=== PATIENT | female | born 1995 | race Caucasian/White ===

== ENCOUNTER 2016-07-09 11:13 | Outpatient (CLI) | payer BC ==
[~2016-07-09] VITALS: Ht 167.6 cm; Wt 80.0 kg
[~2016-07-09 11:13] MED LIST: metroNIDAZOLE (FLAGYL) 500 MG TAB PO SCH
[2016-07-09 11:43] VITALS: BP 132/83
[2016-07-09] MEDS ORDERED: PRENTAB9 PO (12:17)
[2016-07-09] MEDS ORDERED: ACET50TA PO (12:18)
--- NOTE | 2016-07-09 13:28 | REP ---
Clinical: well-being. Findings: Advanced diamniotic dichorionic twin gestation noted. Placenta is noted anteriorly and posteriorly, grade zero without evidence for placenta previa or abruption. Cervix measures 3.9 cm length and appears closed. Concordant growth is appreciated. Gestational age by LMP 35 weeks 2 days with ALTAF 08/11/2016. TWIN A: Cephalic presentation. motion identified. Amniotic fluid volume is normal and the deepest pocket measures 3.3 cm. heart rate equals 147 beats per minute. Estimated weight 1921 grams (35th percentile). Biophysical profile score equals 8/8. Umbilical cord SD ratio equals 1.90. TWIN B: Cephalic presentation. motion identified. Amniotic fluid volume is normal and the deepest pocket measures 3.6 cm. heart rate equals 153 beats per minute. Estimated weight 2149 (55th percentile). Biophysical profile score equals 8/8. Umbilical cord SD ratio equals 2.19. Impression: Diamniotic dichorionic twin gestation. Biophysical profile score equals 8/8 for both twins. Concordant growth is appreciated with estimated weights as noted above. Signed by Georges Barron MD 07/09/2016 01:20 P
[2016-07-09] MEDS ORDERED: TERCONAZOLE-7 VAGINAL CREAM PV SCH ×2 (13:30→21:00)
== END 2016-07-09 14:15 | disposition home or self-care (01) ==
LOC: M LDO 11:13
PROVIDERS: ATTEND Advanced Practice Midwife
DX: O47.03 False labor before 37 completed weeks of gestation, third trimester (principal); Z3A.33 33 weeks gestation of pregnancy; O30.043 Twin pregnancy, dichorionic/diamniotic, third trimester

== ENCOUNTER → 2016-07-27 | Outpatient (REF) | payer BC ==
[~2016-07-27] MED LIST changes: +ACET50TA PO; +PRENTAB9 PO; -metroNIDAZOLE (FLAGYL) 500 MG TAB PO SCH
== END ==
LOC: M LAB REF 13:09
PROVIDERS: ATTEND Specialist
DX: O30.043 Twin pregnancy, dichorionic/diamniotic, third trimester (principal)

== ENCOUNTER 2016-08-11 05:22 | Inpatient (IN) | payer BC ==
[2016-08-11] VITALS (8 sets, daily range): BP systolic 109–141; BP diastolic 62–79
[~2016-08-11] VITALS: Ht 170.2 cm; Wt 86.0 kg
[2016-08-11] MEDS ORDERED: LR 1,000 ML IV SCH ×2 (05:55→09:45)
[2016-08-11] MEDS ORDERED: LACTATED RINGER'S 1000 ML IV STA (05:55)
[2016-08-11] MEDS ORDERED: MORPHINE PRES-FREE INJ 10 MG/10 ML VIAL (J2274) As Ordered ONE (07:12)
[2016-08-11] MEDS ORDERED: BICITRA 30ML SOLN UDC PO ONE (07:15)
[2016-08-11 07:18] LABS: MEAN CORPUSCULAR HEMOGLOBIN 22.8 pg (27.0-33.0); MEAN CORPUSCULAR HGB CONC 31.1 g/dl (32.0-36.5); MEAN CORPUSCULAR VOLUME 73.4 fl (80.0-96.0); RED CELL DISTRIBUTION WIDTH 14.3 % (11.5-14.5); WHITE BLOOD COUNT 9.1 K/mm3 (4.0-10.0)
[2016-08-11] MEDS ORDERED: NALOXONE INJ 0.4 MG/1 ML VIAL (J2310) IV PRN ×2 (07:54)
[2016-08-11] MEDS ORDERED: NALBUPHINE HCL 10 MG/ML AMP (J2300) IV PRN ×2 (07:54→09:45)
[2016-08-11] MEDS ORDERED: ONDANSETRON 4MG/2ML VIAL (J2405) IV PRN ×3 (07:54→09:45)
[2016-08-11] MEDS ORDERED: METOCLOPRAMIDE INJ 10MG/2ML VIAL (J2765) IV PRN (07:54)
[2016-08-11] MEDS ORDERED: METOCLOPRAMIDE INJ 10MG/2ML VIAL (J2765) As Ordered ONE (08:10)
[2016-08-11] MEDS ORDERED: PHENYLephrine HCL 500 MCG/5 ML (100MCG/ML) SYRINGE (J2370) As Ordered ONE ×2 (08:10→08:38)
[2016-08-11] MEDS ORDERED: MIDAZOLAM INJ 2 MG/2 ML VIAL (J2250) As Ordered ONE (08:31)
[2016-08-11] MEDS ORDERED: OXYTOCIN INJ 10 UNITS/ML VIAL (J2590) As Ordered ONE (08:34)
[2016-08-11] MEDS ORDERED: KETOROLAC 60 MG/2 ML VIAL (J1885) As Ordered ONE ×2 (08:40→08:41)
[2016-08-11] MEDS ORDERED: ONDANSETRON 4MG/2ML VIAL (J2405) As Ordered ONE (08:40)
[2016-08-11] MEDS: PRENATAL VITAMIN TAB PO SCH (09:00)
[2016-08-11] MEDS: DOCUSATE SODIUM 100 MG CAP PO SCH ×2 (09:00→20:55)
[2016-08-11] MEDS: LR 1,000 ML IV SCH ×2 (09:04→17:04)
[2016-08-11] MEDS ORDERED: RHOGAM 300 MCG (1500 IU) INJ (J2790) IM SCH (09:15)
[2016-08-11] MEDS ORDERED: PROMETHAZINE 25 MG TAB PO PRN (09:15)
[2016-08-11] MEDS ORDERED: MEASLES,MUMPS,RUBELLA VACCINE INJ (MMR-II) (90707) SC SCH (09:15)
[2016-08-11] MEDS ORDERED: OXYTOCIN 30 UNITS IN 0.9% NaCl 500ML IV BAG (J2590) As Ordered ONE (09:26)
[2016-08-11] MEDS ORDERED: fentaNYL 100 MCG/2 ML INJECTION (J3010) IV PRN (09:45)
[2016-08-11] MEDS ORDERED: PERCOCET 5MG/325MG TAB PO PRN (09:45)
[2016-08-11] MEDS ORDERED: diphenhydrAMINE INJ 50MG/ML VIAL (J1200) IV PRN (09:45)
[2016-08-11] MEDS ORDERED: HYDROmorphone HCL 1 MG/ML SYRINGE (J1170) IV PRN (09:45)
[2016-08-11] MEDS ORDERED: MEPERIDINE INJ 25 MG/ML VIAL (J2175) IV PRN (09:45)
[2016-08-11] MEDS ORDERED: OXYTOCIN DRIP 30 UNITS in APPROPRIATE DILUENT 1 EA IV SCH (09:50)
[2016-08-11] MEDS ORDERED: IBUP600T26 PO (10:11)
[2016-08-11] MEDS ORDERED: NORC5TAB PO (10:15)
[2016-08-11] MEDS ORDERED: COLA100C PO (10:17)
[2016-08-11] MEDS: NORCO, ANEXSIA 5/325MG TABLET (HYDROcodone/ACETAMINOPHEN) PO PRN (13:04)
[2016-08-11] MEDS: KETOROLAC 30 MG/ML VIAL (J1885) IV SCH ×2 (15:00→20:57)
[2016-08-11] MEDS ORDERED: diphenhydrAMINE 50 MG CAP PO PRN (20:15)
[2016-08-11] MEDS: SLF 3 ML SYR IV SCH (20:57)
[2016-08-12] MEDS: KETOROLAC 30 MG/ML VIAL (J1885) IV SCH ×2 (03:23→09:45)
[2016-08-12] MEDS: NORCO, ANEXSIA 5/325MG TABLET (HYDROcodone/ACETAMINOPHEN) PO PRN ×4 (03:28→20:37)
[2016-08-12 06:00] VITALS: BP 141/83
[2016-08-12 06:38] LABS: MEAN CORPUSCULAR HEMOGLOBIN 22.6 pg (27.0-33.0); MEAN CORPUSCULAR HGB CONC 31.1 g/dl (32.0-36.5); MEAN CORPUSCULAR VOLUME 72.7 fl (80.0-96.0); RED CELL DISTRIBUTION WIDTH 14.6 % (11.5-14.5); WHITE BLOOD COUNT 10.1 K/mm3 (4.0-10.0)
[2016-08-12] MEDS: SLF 3 ML SYR IV SCH ×4 (06:53→19:21)
[2016-08-12] MEDS: PRENATAL VITAMIN TAB PO SCH (09:44)
[2016-08-12] MEDS: DOCUSATE SODIUM 100 MG CAP PO SCH ×2 (09:44→20:30)
[2016-08-12] MEDS: IBUPROFEN 800 MG TAB PO SCH (17:11)
[2016-08-12 18:00] VITALS: BP 132/70
[2016-08-13] MEDS: IBUPROFEN 800 MG TAB PO SCH ×2 (00:42→10:25)
[2016-08-13] MEDS: NORCO, ANEXSIA 5/325MG TABLET (HYDROcodone/ACETAMINOPHEN) PO PRN ×2 (01:48→10:26)
[2016-08-13 05:45] VITALS: BP 136/74
[2016-08-13] MEDS: PRENATAL VITAMIN TAB PO SCH (10:24)
[2016-08-13] MEDS: DOCUSATE SODIUM 100 MG CAP PO SCH (10:24)
--- NOTE | 2016-08-13 10:36 | DSES ---
DATE OF ADMISSION: 08/11/2016 DATE OF DISCHARGE: DISCHARGE DIAGNOSIS: Repeat section at term, postoperative day #2, stable condition. SURGEON: Dr. Roni Magana. HISTORY: Yuliya is a 20-year-old, 2, para 3-0-0-3 now, who underwent repeat section at term with a - twin gestation due to previous prior and malpresentation. The surgery was uncomplicated. Her postoperative course has been uncomplicated. She has been out of bed for self care, roly care and infant care. Her pain has been well controlled with by mouth Percocet and ibuprofen. She denies any heavy bleeding and generalized complaints. Her vital signs are stable today. Temperature 98.5, pulse 94, respirations 18 and blood pressure is 136/74. LAB WORK: Preoperative CBC with a hemoglobin of 9.8, hematocrit of 31.6 and platelet of 266. Postoperative CBC with hemoglobin of 10, hematocrit of 32.1 and platelets of 235. Breast-feeding has been going well and it appears the twins will be discharged today. She delivered two live females. Twin A weighing 2860 grams, 6 pounds 5 ounces, eight and nine. Twin B 2858 grams, 6 pounds 5 ounces, four and nine. Her breasts are soft and nontender. Abdomen: Fundus firm at umbilicus (U). Her incision is well approximated, Steri-Strips in place. There is no drainage. No redness. No warmth. No edema. Perineum is intact with lochia rubra moderate. Bilateral lower extremity +1 pitting edema. The plan is to discharge the patient home today and follow up at [facility] for a 2-week incision check and a 6-week visit. I did review discharge instructions that include breast care, roly care, rest, activity and lifting restrictions, signs and symptoms of mastitis and uterine infection as well as incisional infection. I reviewed access to care. Prescriptions for her Percocet have been prescribed prior by Dr. Magana to her pharmacy. The patient has had all of her questions answered and desires to be discharged today.
[2016-08-13] MEDS ORDERED: LORT5TAB PO (11:04)
== END 2016-08-13 12:35 | disposition home or self-care (01) | DRG 540 ==
LOC: M LDI 05:22 → M OBS 11:06
PROVIDERS: ADMIT Obstetrics & Gynecology; ATTEND Obstetrics & Gynecology
PROC: 10D00Z1 Extraction of Products of Conception, Low, Open Approach (ICD-10-PCS; principal; 2016-08-11 07:30)
DX: O64.8XX1 Obstructed labor due to other malposition and malpresentation, fetus 1 (principal); O30.043 Twin pregnancy, dichorionic/diamniotic, third trimester; Z37.2 Twins, both liveborn; O64.0XX2 Obstructed labor due to incomplete rotation of fetal head, fetus 2; O34.211 Maternal care for low transverse scar from previous cesarean delivery; Z3A.38 38 weeks gestation of pregnancy; Z79.899 Other long term (current) drug therapy; F41.8 Other specified anxiety disorders; O99.344 Other mental disorders complicating childbirth

== ENCOUNTER → 2023-11-05 | Outpatient (CLI) | payer OTHER ==
[~2023-11-05] MED LIST changes: -ACET50TA PO; +COLA100C5 PO; +IBUP-1022 PO; +LORT5TAB PO; +MAPA500T2 PO; +NORC1TAB7 PO
== END ==
LOC: M WHC 10:10
PROVIDERS: ATTEND Specialist
DX: Z34.82 Encounter for supervision of other normal pregnancy, second trimester (principal)

== ENCOUNTER → 2023-12-27 | Outpatient (CLI) | payer OTHER | LOC: M WHC 15:30 | PROVIDERS: ATTEND Advanced Practice Midwife | DX: Z34.83 Encounter for supervision of other normal pregnancy, third trimester (principal); Z3A.28 28 weeks gestation of pregnancy ==

== ENCOUNTER → 2024-02-18 | Outpatient (REF) | payer OTHER | LOC: M PLALAB 11:04 | PROVIDERS: ATTEND Obstetrics & Gynecology | DX: Z36.85 Encounter for antenatal screening for Streptococcus B (principal); Z3A.35 35 weeks gestation of pregnancy ==

== ENCOUNTER → 2024-02-18 | Outpatient (CLI) | payer OTHER | LOC: M WHC 12:32 | PROVIDERS: ATTEND Obstetrics & Gynecology | DX: O24.419 Gestational diabetes mellitus in pregnancy, unspecified control (principal); Z3A.35 35 weeks gestation of pregnancy ==

== ENCOUNTER 2024-03-11 05:35 | Inpatient (IN) | payer OTHER ==
[2024-03-11] VITALS (8 sets, daily range): BP systolic 101–120; BP diastolic 53–64; TEMP 97.9; O2SAT 95–100
[~2024-03-11] VITALS: Ht 162.6 cm; Wt 85.5 kg
[2024-03-11] MEDS: LACTATED RINGER'S 1000 ML IV STA (05:48)
[2024-03-11 07:15] LABS: HEMOGLOBIN 11.3 g/dl (12.0-15.5); MEAN CORPUSCULAR HEMOGLOBIN 27.7 pg (27.0-33.0); MEAN CORPUSCULAR HGB CONC 33.2 g/dl (32.0-36.5); MEAN CORPUSCULAR VOLUME 83.3 fl (80.0-96.0); PLATELET COUNT, AUTOMATED 189 10^3/uL (150-450); RED BLOOD COUNT 4.08 10^6/uL (4.00-5.40); WHITE BLOOD COUNT 8.4 10^3/uL (4.0-10.0)
[2024-03-11] MEDS: LR 1,000 ML IV SCH ×2 (07:21→15:12)
[2024-03-11] MEDS: ceFAZolin SOD 2 GM in IV 1 EA IV ONE (07:21)
[2024-03-11] MEDS: BICITRA 30ML SOLN UDC PO ONE (07:21)
[2024-03-11 08:35] LABS: CORD GAS ABE A -1.6; CORD GAS HCO3 A 25.6 MMOL/L; CORD GAS HCO3 V 23.1 MMOL/L; CORD GAS O2 SAT A 58.8 %; CORD GAS O2 SAT V 77.9 %; CORD GAS PCO2 A 52.4 mmHg; CORD GAS PCO2 V 36.7 mmHg; CORD GAS PH A 7.306 UNITS; CORD GAS PH V 7.416 UNITS; CORD GAS PO2 A 25.1 mmHg; CORD GAS PO2 V 31.4 mmHg; CORD GAS SBC A 22.2 MMOL/L; CORD GAS SBC V 23.1 MMOL/L; CORD GAS TCO2 A 27.2 MMOL/L; CORD GAS TCO2 V 24.2 MMOL/L
[2024-03-11] MEDS ORDERED: MORPHINE PRES-FREE INJ 10 MG/10 ML VIAL As Ordered ONE (08:50)
[2024-03-11] MEDS ORDERED: OXYTOCIN 30UNITS IN 0.9% NaCl 500ML IV BAG As Ordered ONE (08:50)
[2024-03-11] MEDS ORDERED: PHENYLEPHRINE 10MG/ML 1ML VIAL As Ordered ONE (08:50)
[2024-03-11] MEDS ORDERED: KETOROLAC 60MG 2ML VIAL As Ordered ONE (08:50)
[2024-03-11] MEDS ORDERED: ONDANSETRON 4MG 2ML VIAL As Ordered ONE (08:50)
[2024-03-11] MEDS ORDERED: ePHEDrine SULFATE 25 MG/5 ML(5MG/ML) SYRINGE As Ordered ONE (08:50)
[2024-03-11] MEDS ORDERED: ONDANSETRON 4MG 2ML VIAL IV PRN ×2 (09:00→09:40)
[2024-03-11] MEDS ORDERED: PERCOCET 5MG/325MG TAB PO PRN (09:00)
[2024-03-11] MEDS ORDERED: SIMETHICONE 80MG CHEW TAB PO PRN (09:00)
[2024-03-11] MEDS: PRENATAL VITAMINS CHEWABLE TABLET PO SCH (09:00)
[2024-03-11] MEDS ORDERED: RHOGAM 300MCG (1500IU) INJ IM SCH (09:00)
[2024-03-11] MEDS: OXYTOCIN DRIP 30 UNITS in IV 1 EA IV SCH (09:22)
[2024-03-11] MEDS ORDERED: diphenhydrAMINE 50MG/ML VIAL IV PRN (09:40)
[2024-03-11] MEDS: SLF 3 ML SYR IV SCH (09:40)
[2024-03-11] MEDS ORDERED: **NOTE PATIENT COMMENT** MISC XX SCH (09:40)
[2024-03-11] MEDS ORDERED: NALOXONE INJ 0.4MG/1ML VIAL IV PRN ×2 (09:40)
[2024-03-11] MEDS ORDERED: fentaNYL 100 MCG/2 ML INJECTION IV PRN (09:40)
[2024-03-11 09:46] LABS: HEPATITIS C VIRUS ABY INDEX < 0.02 INDEX (<0.8)
[2024-03-11] MEDS: METOCLOPRAMIDE INJ 10MG/2ML VIAL IV PRN (11:35)
[2024-03-11] MEDS: KETOROLAC 30 MG/ML 1ML VIAL IV SCH (15:12)
[2024-03-12 02:00] VITALS: BP 104/52; O2SAT 96
[2024-03-12] MEDS: DOCUSATE SODIUM 100MG CAPSULE PO PRN (02:41)
[2024-03-12 06:03] VITALS: BP 109/51; O2SAT 100
[2024-03-12 06:41] LABS: HEMATOCRIT 33.8 % (36.0-47.0); HEMOGLOBIN 11.3 g/dl (12.0-15.5); MEAN CORPUSCULAR HEMOGLOBIN 27.7 pg (27.0-33.0); MEAN CORPUSCULAR HGB CONC 33.4 g/dl (32.0-36.5); MEAN CORPUSCULAR VOLUME 82.8 fl (80.0-96.0); PLATELET COUNT, AUTOMATED 202 10^3/uL (150-450); RED BLOOD COUNT 4.08 10^6/uL (4.00-5.40); WHITE BLOOD COUNT 11.9 10^3/uL (4.0-10.0)
[2024-03-12 10:00] VITALS: BP 104/58; O2SAT 100
[2024-03-12] MEDS: IBUPROFEN 800 MG TAB PO SCH (11:17)
[2024-03-12 14:00] VITALS: BP 99/50; O2SAT 98
[2024-03-12] MEDS: PERCOCET 5MG/325MG TAB PO PRN (15:53)
[2024-03-12 18:00] VITALS: BP 114/62; O2SAT 98
[2024-03-12] MEDS: ESCITALOPRAM OXALATE 10 MG TAB (LEXAPRO) PO SCH (20:07)
[2024-03-12] MEDS ORDERED: IBUP80TA PO (20:17)
[2024-03-12] MEDS ORDERED: COLA100C5 PO (20:17)
[2024-03-12] MEDS ORDERED: OXYC1TAB23 PO (20:17)
[2024-03-12 22:00] VITALS: BP 133/71; O2SAT 99
[2024-03-13 02:00] VITALS: BP 130/52; O2SAT 98
[2024-03-13] MEDS: ONDANSETRON 4MG TAB PO PRN (03:36)
[2024-03-13 06:00] VITALS: BP 123/68; O2SAT 98
[2024-03-13] MEDS ORDERED: MEASLES,MUMPS,RUBELLA VACCINE INJ (MMR-II) SC.IMMUN ONE (09:00)
[2024-03-13] MEDS: ACETAMINOPHEN 500 MG TAB PO PRN (09:05)
[2024-03-13] MEDS: BOOSTRIX VACCINE (TETANUS/DIPHTH/ACEL. PERTUSSIS) 0.5ML SYR IM.IMMUN ONE (09:07)
[2024-03-13 10:07] VITALS: BP 125/62; O2SAT 98
== END 2024-03-13 11:48 | disposition home or self-care (01) | DRG 540 ==
LOC: M LDI 05:35 → M OBS 10:11
PROVIDERS: ADMIT Specialist; ATTEND Specialist
PROC: 10D00Z1 Extraction of Products of Conception, Low, Open Approach (ICD-10-PCS; principal; 2024-03-11 07:30)
DX: O34.211 Maternal care for low transverse scar from previous cesarean delivery (principal); Z37.0 Single live birth; Z3A.39 39 weeks gestation of pregnancy